=== PATIENT | male | born 2000 | race Hispanic/Latino ===

== ENCOUNTER 2024-05-09 14:13 | Inpatient (IN) | payer OTHER ==
[~2024-05-09] VITALS: Ht 142.2 cm; Wt 31.3 kg
[~2024-05-09 14:13] MED LIST: PROPOFOL IV EMULSION 10 MG/ML 20 ML VIAL ONE
[2024-05-09 15:00] LABS: BASOPHILS % 0.2 % (0.0-1.0); EOSINOPHILS # (AUTO) 0.2 (0.0-0.4); EOSINOPHILS % 2.8 % (0.0-6.0); HEMATOCRIT 21.6 % (38.2-49.6); LYMPHOCYTES # (AUTO) 1.6 (1.0-3.2); LYMPHOCYTES % 27.2 % (18.0-39.1); MEAN CORPUSCULAR HEMOGLOBIN 28.5 pg (28-32); MEAN CORPUSCULAR HGB CONC 31.9 g/dL (31-35); MEAN CORPUSCULAR VOLUME 89.3 fL (81-99); MONOCYTES # (AUTO) 0.8 (0.2-0.8); MONOCYTES % 13.2 % (4.4-11.3); NEUTROPHILS # (AUTO) 3.2 (2.1-6.9); NEUTROPHILS % 55.7 % (38.7-80.0); PLATELET COUNT 185 x10e3/uL (140-360); RED BLOOD COUNT 2.42 x10e6/uL (4.3-5.7); RED CELL DISTRIBUTION WIDTH 14.5 % (11.7-14.4); WHITE BLOOD COUNT 5.69 x10e3/uL (4.8-10.8)
[2024-05-09 15:05] LABS: INR 4.62; PARTIAL THROMBOPLASTIN TIME 49.3 seconds (23.8-35.5)
[2024-05-09 15:05] LABS: HEMOGLOBIN 6.9 g/dL (14.0-18.0)
[2024-05-09 15:07] LABS: PROTHROMBIN TIME 45.5 seconds (11.9-14.5)
[2024-05-09 15:14] LABS: ALBUMIN 3.4 g/dL (3.5-5.0); ANION GAP 11.7 mmol/L (8-16); BILIRUBIN,TOTAL 0.2 mg/dL (0.2-1.2); CALCIUM 8.2 mg/dL (8.4-10.2); CREATININE, SERUM 0.71 mg/dL (0.72-1.25); POTASSIUM 3.7 mmol/L (3.5-5.1); TOTAL PROTEIN 6.7 g/dL (6.5-8.1)
[2024-05-09] MEDS: PHYTONADIONE 10 MG/ML AMP SQ ONE (15:33)
[2024-05-09 15:50] VITALS: PULSE 89; RESP 16; TEMP 98.4
[2024-05-09] MEDS ORDERED: ONDANSETRON HCL INJ 2MG/ML 2ML 2 MG/ML VIAL IV PRN (16:30)
[2024-05-09 18:16] VITALS: BP 112/100; PULSE 104; RESP 22; TEMP 98.8; O2SAT 100
[2024-05-09] MEDS: SODIUM CHLORIDE 0.9% 250ML 250 ML IV ONE (18:26)
[2024-05-09] MEDS ORDERED: SPIRONOLACTONE25 MG GT (18:46)
[2024-05-09] MEDS ORDERED: TRAZODONE HCL50 MG GT (18:46)
[2024-05-09] MEDS ORDERED: VENTOLIN HFA18 GM INH (18:46)
[2024-05-09] MEDS ORDERED: BACLOFEN20 MG GT (18:46)
[2024-05-09] MEDS ORDERED: WARFARIN SODIUM5 MG GT (18:46)
[2024-05-09] MEDS ORDERED: CETIRIZINE HCL10 MG GT (18:46)
[2024-05-09] MEDS ORDERED: CARVEDILOL6.25 MG GT (18:46)
[2024-05-09] MEDS ORDERED: LISINOPRIL5 MG GT (18:46)
[2024-05-09] MEDS ORDERED: CLONAZEPAM2 MG GT (18:46)
[2024-05-09 19:58] VITALS: BP 94/60; PULSE 101; RESP 17; TEMP 99.1; O2SAT 99
[2024-05-09 21:00] VITALS: BP 94/60; PULSE 101; RESP 17; TEMP 99.1; O2SAT 99
[2024-05-09] MEDS: SODIUM CHLORIDE 0.9% 1000ML 1,000 ML IV SCH (21:08)
[2024-05-09] MEDS ORDERED: SODIUM CHLORIDE 0.9% 1000ML 1,000 ML IV SCH (23:30)
[2024-05-10] VITALS (7 sets, daily range): BP systolic 106–128; BP diastolic 63–85; PULSE 60–109; RESP 16–18; TEMP 97.4–98.4; O2SAT 96–100
[2024-05-10 02:31] LABS: FERRITIN 116.66 ng/mL (21.81-274.66)
[2024-05-10 02:44] LABS: FOLATE 16.8 ng/mL (7.0-15.4)
[2024-05-10 06:12] LABS: BASOPHILS % 0.3 % (0.0-1.0); EOSINOPHILS # (AUTO) 0.3 (0.0-0.4); EOSINOPHILS % 3.9 % (0.0-6.0); HEMATOCRIT 28.3 % (38.2-49.6); HEMOGLOBIN 8.9 g/dL (14.0-18.0); LYMPHOCYTES # (AUTO) 2.1 (1.0-3.2); LYMPHOCYTES % 30.4 % (18.0-39.1); MEAN CORPUSCULAR HGB CONC 31.4 g/dL (31-35); MONOCYTES # (AUTO) 0.7 (0.2-0.8); MONOCYTES % 10.8 % (4.4-11.3); NEUTROPHILS # (AUTO) 3.7 (2.1-6.9); NEUTROPHILS % 53.6 % (38.7-80.0); PLATELET COUNT 149 x10e3/uL (140-360); RED BLOOD COUNT 3.18 x10e6/uL (4.3-5.7); RED CELL DISTRIBUTION WIDTH 14.7 % (11.7-14.4); WHITE BLOOD COUNT 6.84 x10e3/uL (4.8-10.8)
[2024-05-10 06:27] LABS: INR 1.21; PROTHROMBIN TIME 16.1 seconds (11.9-14.5)
[2024-05-10 06:28] LABS: PARTIAL THROMBOPLASTIN TIME 28.6 seconds (23.8-35.5)
[2024-05-10 06:53] LABS: ALBUMIN 3.7 g/dL (3.5-5.0); ALBUMIN/GLOBULIN RATIO 1.2 (0.8-2.0); ANION GAP 6.5 mmol/L (8-16); BILIRUBIN,TOTAL 0.7 mg/dL (0.2-1.2); CREATININE, SERUM 0.74 mg/dL (0.72-1.25); POTASSIUM 4.5 mmol/L (3.5-5.1); TOTAL PROTEIN 6.9 g/dL (6.5-8.1)
[2024-05-10 07:20] LABS: CALCIUM 10.1 mg/dL (8.4-10.2)
[2024-05-10] MEDS ORDERED: HEPARIN SOD (PORCINE) 1000 UNIT/ML SDV ONE (18:35)
[2024-05-10] MEDS: ACETAMINOPHEN 325 MG TAB PO PRN (22:43)
[2024-05-11] VITALS (8 sets, daily range): BP systolic 91–171; BP diastolic 52–91; PULSE 83–106; RESP 17–21; TEMP 97.2–98.4; O2SAT 92–100
[2024-05-11 05:31] LABS: BASOPHILS % 0.2 % (0.0-1.0); EOSINOPHILS # (AUTO) 0.3 (0.0-0.4); EOSINOPHILS % 5.4 % (0.0-6.0); HEMATOCRIT 28.7 % (38.2-49.6); HEMOGLOBIN 9.2 g/dL (14.0-18.0); LYMPHOCYTES # (AUTO) 1.1 (1.0-3.2); LYMPHOCYTES % 22.5 % (18.0-39.1); MEAN CORPUSCULAR HEMOGLOBIN 28.2 pg (28-32); MEAN CORPUSCULAR HGB CONC 32.1 g/dL (31-35); MONOCYTES # (AUTO) 0.6 (0.2-0.8); MONOCYTES % 11.5 % (4.4-11.3); NEUTROPHILS % 59.6 % (38.7-80.0); PLATELET COUNT 180 x10e3/uL (140-360); RED BLOOD COUNT 3.26 x10e6/uL (4.3-5.7); RED CELL DISTRIBUTION WIDTH 14.5 % (11.7-14.4); WHITE BLOOD COUNT 5.03 x10e3/uL (4.8-10.8)
[2024-05-11 05:57] LABS: ANION GAP 15.7 mmol/L (8-16); CALCIUM 8.4 mg/dL (8.4-10.2); CREATININE, SERUM 0.73 mg/dL (0.72-1.25); POTASSIUM 3.7 mmol/L (3.5-5.1)
[2024-05-11] MEDS ORDERED: CLONAZEPAM 1 MG TAB PO PRN (18:30)
[2024-05-11] MEDS: CARVEDILOL 3.125 MG TAB GT SCH (21:45)
[2024-05-11] MEDS: LISINOPRIL 2.5 MG TAB GT SCH (21:45)
[2024-05-11] MEDS ORDERED: ALBUTEROL 90 MCG/ACT INHALER INH PRN (21:45)
[2024-05-11] MEDS: TRAZODONE HCL 50 MG TAB PO SCH (21:57)
[2024-05-12] VITALS (26 sets, daily range): BP systolic 99–164; BP diastolic 51–94; PULSE 62–147; RESP 19–44; TEMP 97.8–99.1; O2SAT 94–100
[2024-05-12] MEDS: SPIRONOLACTONE 25 MG TAB GT SCH (09:00)
[2024-05-12] MEDS: LORATADINE 10 MG TAB GT SCH (09:00)
[2024-05-12] MEDS: BACLOFEN 10 MG TAB GT SCH (09:00)
[2024-05-12] MEDS ORDERED: DIATRIZOATE MEGL/DIATRIZOA SOD 120 ML BTL PO ONE (12:36)
[2024-05-12] MEDS: LORAZEPAM INJ 2 MG/ML VIAL IV ONE (14:13)
[2024-05-12] MEDS ORDERED: HEPARIN SOD/DEXTROSE 5% 25000 UNIT/250 ML BAG IV SCH (14:15)
[2024-05-12 14:53] LABS: BASOPHILS % 0.1 % (0.0-1.0); EOSINOPHILS # (AUTO) 0.1 (0.0-0.4); EOSINOPHILS % 0.9 % (0.0-6.0); HEMATOCRIT 26.8 % (38.2-49.6); HEMOGLOBIN 8.7 g/dL (14.0-18.0); LYMPHOCYTES # (AUTO) 0.6 (1.0-3.2); LYMPHOCYTES % 7.2 % (18.0-39.1); MEAN CORPUSCULAR HEMOGLOBIN 28.3 pg (28-32); MEAN CORPUSCULAR HGB CONC 32.5 g/dL (31-35); MEAN CORPUSCULAR VOLUME 87.3 fL (81-99); MONOCYTES # (AUTO) 0.7 (0.2-0.8); MONOCYTES % 9.2 % (4.4-11.3); NEUTROPHILS # (AUTO) 6.2 (2.1-6.9); NEUTROPHILS % 81.8 % (38.7-80.0); PLATELET COUNT 205 x10e3/uL (140-360); RED BLOOD COUNT 3.07 x10e6/uL (4.3-5.7); RED CELL DISTRIBUTION WIDTH 14.6 % (11.7-14.4); WHITE BLOOD COUNT 7.59 x10e3/uL (4.8-10.8)
[2024-05-12 15:08] LABS: INR 1.09; PROTHROMBIN TIME 14.9 seconds (11.9-14.5)
[2024-05-12] MEDS: HEPARIN 25,000 UNIT/D5W 250ML 250 ML IV SCH (16:46)
[2024-05-12] MEDS: WARFARIN SOD 5 MG TAB GT SCH (17:38)
[2024-05-12] MEDS: CLONAZEPAM 1 MG TAB PO SCH (21:28)
[2024-05-12] MEDS ORDERED: CLONAZEPAM 1 MG TAB PO SCH (22:00)
[2024-05-12 22:14] LABS: HEMATOCRIT 24.9 % (38.2-49.6)
[2024-05-13 06:05] LABS: HEPATITIS B SURFACE AG (P) Negative; HEPATITIS C ANTIBODY Non Reactive
== END 2024-05-13 00:15 | disposition short-term general hospital (02) | DRG 377 ==
LOC: ER 14:28 → ERHOLD 16:17 → MED/SURG3 17:57 → OBSVTOIN 05-10 16:01 → ICU 05-12 13:25
PROVIDERS: ADMIT Internal Medicine; ATTEND Internal Medicine
PROC: 30233N1 Transfusion of Nonautologous Red Blood Cells into Peripheral Vein, Percutaneous Approach (ICD-10-PCS; principal; 2024-05-09)
PROC: 30233K1 Transfusion of Nonautologous Frozen Plasma into Peripheral Vein, Percutaneous Approach (ICD-10-PCS; principal; 2024-05-09)
PROC: 0DB68ZX Excision of Stomach, Via Natural or Artificial Opening Endoscopic, Diagnostic (ICD-10-PCS; 2024-05-10)
PROC: 0DB78ZX Excision of Stomach, Pylorus, Via Natural or Artificial Opening Endoscopic, Diagnostic (ICD-10-PCS; 2024-05-10)
DX: K29.71 Gastritis, unspecified, with bleeding (principal); U07.1 COVID-19; D68.32 Hemorrhagic disorder due to extrinsic circulating anticoagulants; E44.0 Moderate protein-calorie malnutrition; G40.89 Other seizures; G80.1 Spastic diplegic cerebral palsy; Z68.1 Body mass index [BMI] 19.9 or less, adult; D50.0 Iron deficiency anemia secondary to blood loss (chronic); T45.515A Adverse effect of anticoagulants, initial encounter; R62.50 Unspecified lack of expected normal physiological development in childhood; Z79.01 Long term (current) use of anticoagulants; Z95.2 Presence of prosthetic heart valve; Z93.1 Gastrostomy status; Z91.040 Latex allergy status; Z88.8 Allergy status to other drugs, medicaments and biological substances
CPT/HCPCS: 36415; 36569; 43239; 70450; 71045; 74250; 78278; 80048; 80053; 82607; 82728; 82746; 82948; 83540; 83735; 84466; 85014; 85018; 85025; 85045; 85610; 85730; 86850; 86900; 86920; 88305; 88312; 88342; 93005; 94799; 95812; 99252; 99285; A9512; G0378; J1644; J2060; J2470; J3430; J7030; J7050; P9016; P9017; U0002